=== PATIENT | female | born 1960 | race Caucasian/White ===

== ENCOUNTER 2023-05-04 06:58 | Day surgery (SDC) | payer OTHER, SELFPAY ==
--- NOTE | 2023-05-03 10:24 | PC.NURSE ---
Call placed to patient to attempt to go over her health history and medication list. There was no answer so a detailed message was left for patient with instruction for tomorrow. No caffeine, may have light breakfast, may take medications, must have a motor pool driver for after her procedure, must bring folder and eye drops and to call the number provided to get arrival time after 4 pm today.
--- NOTE | 2023-05-04 | OP_ITS ---
OPERATION DATE: 05/04/2023 SURGEON: Feliberto Gonzalez M.D. PREOPERATIVE DIAGNOSIS: Nuclear sclerotic cataract left eye. POSTOPERATIVE DIAGNOSIS: Nuclear sclerotic cataract left eye. PROCEDURE: Cataract extraction with intraocular lens placed for the left eye. ANESTHESIA: Topical. ESTIMATED BLOOD LOSS: Zero. COMPLICATIONS: None. PROCEDURE: In the preoperative holding area, topical proparacaine was placed under the surface of the eye and the patient was sat up in an upright position. The 6 o?clock limbus was then marked with a marking pen for future reference for the Toric lens. The patient was then brought to the operating room in supine position. After proper identification, the left eye was prepped and draped in a sterile ophthalmic fashion. A paracentesis was created at the 5 o'clock position. Approximately 1 mL of unpreserved Xylocaine was injected into the anterior chamber followed by Amvisc Plus. Using a 2.6 mm Keratome blade, a clear corneal incision was created at the 3 o'clock limbus. A cystotome was then used to begin a curvilinear capsulorrhexis that was continued for 360 degrees with the Utrata forceps. BSS on a 26 gauge cannula was injected beneath the anterior capsule in order to hydrodissect as well as hydrodelineate the lens. After ensuring mobility, phacoemulsification was performed in a [id number]-bkq-pcisfx-type fashion. After all nuclear material had been removed from the eye, IA was introduced and all residual cortical material was cleaned up. Additional Amvisc Plus was injected into the posterior bag and anterior chamber to inflate and pressurize the eye. Referencing the 6 o?clock limbal erick, a Cassatt manual marking system was used to find the 89 degree axis. This was marked on the surface of the eye. A lens model [id number], 12.5 diopters was then injected and dialed approximately 10 degrees shy of the 89 degree axis. IA was reintroduced into the anterior chamber and all residual Amvisc Plus was removed from the eye. Utilizing the tip of the IA, the lens was rotated the final 10 degrees to the 89 degree axis. BSS on a 30 gauge cannula was injected into the stroma of both the clear corneal incision as well as the paracentesis to hydrate the wounds. Additional BSS was injected into the anterior chamber to pressurize the eye at approximately 20 to 22 mmHg by finger tension. 0.1 cc of antibiotics was used to wash out the anterior chamber and maintain the pressure as above. Weck-Claire sponge was used to check the wounds to be watertight. One drop of Apraclonidine and one drop of prednisolone acetate were placed into the eye and a shield was placed over top. The patient was then sent to the postoperative area in satisfactory condition to follow up the following day for postoperative care. MELA
--- NOTE | 2023-05-04 06:58 | HP_ITS ---
PREOPERATIVE HISTORY AND PHYSICAL ? Date:? 05/03/2022 ? HISTORY:? The patient is a 62-year-old white female with complaints of declining vision out of her left eye.? This has been gradual in nature over the last 1-2 year, affecting her vision for both distance as well as near.? She describes it as constant and is worse when looking at objects such as the road signs at a distance, or the scrolling on the bottom of a television.? She also describes night time glare and halos around headlights.? Finally, she states having difficulty with up close objects for reading, such as newspaper or crossword puzzles. ? PAST OCULAR HISTORY:? Denies. ? PAST MEDICAL HISTORY:? 1.? Bipolar type 1 disorder. 2.? COPD. 3.? Hypothyroidism. 4.? GERD. ? SOCIAL HISTORY:? Denies tobacco, alcohol or recreational drug abuse. ? SYSTEMIC MEDICATIONS:? Include lorazepam, bupropion, Seroquel, omeprazole, potassium chloride. ? ALLERGIES:? Include amoxicillin, propoxyphene, acetaminophen, aripiprazole, cephalexin, codeine, erythromycin, meperidine, morphine, oxycodone/acetaminophen, penicillin, tramadol, valproic acid. ? REVIEW OF SYSTEMS:? No pertinent positives. ? PHYSICAL EXAM: GENERAL:? In general, she is awake, alert and oriented x3, well developed, well nourished, in no acute distress.? ? HEART:? Regular rate and rhythm. ? LUNGS:? Clear bilaterally. ? ABDOMEN:? Soft, non-tender, non-distended. ? EXTREMITIES:? No pitting edema. ? OPHTHALMIC EXAM:? Revealed a visual acuity of 20/60 + in the right eye and 20/60 - in the left.? Pupils motility, muscle balance, confrontational visual barros within normal limits bilaterally.? Pressures measured at 16 bilaterally.? Vision glared down to 20/200 bilaterally.? Slit lamp exam revealed blepharitis with a severe decrease in tear film bilaterally.? Conjunctiva, cornea, anterior chamber and iris were within normal limits bilaterally.? Lens status demonstrated a 2+ nuclear sclerosis with 1+ cortical changes and 1+ anterior subcapsular cataract bilaterally. ? FUNDUS EXAM:? Revealed good view with good dilation bilaterally.? Optic discs, macula, vessels, periphery and vitreous were within normal limits bilaterally. ? ASSESSMENT AND PLAN:? Visually significant cataract, left eye.? After risks, benefits, alternatives, as well as expectations were delivered to the patient, she elected to go forward with cataract removal.? She understands the risks include but not limited to infection, bleeding, loss of vision, loss of the eye itself.? Secondly, she understands postoperatively she is likely to require spectacle correction for best visual acuity.? Finally, a complete ophthalmic exam was performed, there is not determined to be any other source of visual decline other than that of the cataract. After understanding all the risks as well as expectations, she elects to move forward with the procedure as listed above and will be doing so in the near future. MELA
[2023-05-04] MEDS: BESIFLOXACIN HCL 100 DROP DROPS.SUSP OP ×4 (07:25→07:51)
[2023-05-04] MEDS: CYCLOPENTOLATE HCL 1% OP SOL 40 DROP/2 ML BOTTLE OP ×4 (07:25→07:51)
[2023-05-04] MEDS: PHENYLEPHRINE HCL 2.5% OP SOL 40 DROP/2 ML BOTTLE OP ×4 (07:25→07:51)
[2023-05-04] MEDS: TROPICAMIDE 1% OP SOL 300 DROP/15 ML BOTTLE OP ×4 (07:26→07:52)
[2023-05-04] MEDS: DIAZEPAM 5 MG TABLET 10 MG PO (07:33)
[2023-05-04 08:05] VITALS: BP 117/76; PULSE 80; RESP 16; TEMP 36.1; O2SAT 97
[2023-05-04] MEDS: BETADINE POVIDONE-IODINE 5% OP SOL 30 ML BOTTLE OP (08:40)
[2023-05-04 08:48] VITALS: BP 108/59; BP 109/70; PULSE 68; PULSE 69; RESP 16; RESP 18; O2SAT 97; O2SAT 99
[2023-05-04] MEDS: PREDNISOLONE ACETATE OP 1% SUSP 100 DROPS/5 ML 1 DROP OP (08:50)
[2023-05-04] MEDS: LIDOCAINE 2% JELLY 10 ML TOPICAL (08:53)
[2023-05-04] MEDS: PHENYLEPHRINE/KETOROLAC 1-0.3% ML VIAL 4 ML IRR (08:53)
[2023-05-04] MEDS: LIDOCAINE HCL 1% PF 20 MG/2 ML VIAL INJ (08:53)
[2023-05-04] MEDS: APRACLONIDINE HCL 100 DROP/5 ML BOTTLE OP (08:53)
[2023-05-04] MEDS: HYALURONATE SODIUM 16 MG/ML SYRINGE OP (08:53)
[2023-05-04] MEDS: PROPARACAINE HCL 0.5% 300 DROP/15 ML BOTTLE OP (08:58)
[2023-05-04] MEDS: TETRACAINE HCL 0.5% OP SOL 80 DROP/4 ML BOTTLE OP (08:59)
== END 2023-05-04 09:12 | disposition home or self-care (01) ==
LOC: SURGOUT 06:59
PROVIDERS: Visit Provider Ophthalmology
PROC: (CPT 66984; principal; 2023-05-04 08:10)
DX: H25.12 Age-related nuclear cataract, left eye (principal); K21.9 Gastro-esophageal reflux disease without esophagitis; E03.9 Hypothyroidism, unspecified; J44.9 Chronic obstructive pulmonary disease, unspecified; F31.9 Bipolar disorder, unspecified; Z79.899 Other long term (current) drug therapy
CPT/HCPCS: 66984

== ENCOUNTER 2023-05-31 10:08 | Outpatient (OUT) | payer OTHER, SELFPAY ==
--- OUTSIDE RECORDS SUMMARY | 2023-05-31 10:29 | XMS_ITS | CCD ---
Author Name Unknown Address [address] [place] [address] Organization [facility] Care Team Providers Care Disposal Man Name Role Phone MISC, DOCTOR Admitting Unavailable MISC, DOCTOR Attending Unavailable [facility] Primary Care Unava ilable [facility] Consulting Unava ilable Filiberto Grullon Unavailable Indira Pena Unavailable ALEXI DOMINGUEZ Attending Unavailable ABRAHAM ABREU Referring Unavailable Allergies Allergy Classification Reported Allergen(s) Allergy Type Date of Onset Reaction(s) Facility (3 sources) Acetaminophen Drug Allergy Unknown [facility] Repository (3 sources) Acetaminophen / oxyCODONE Drug Allergy Unknown [facility] Repository (3 sources) ARIPiprazole Drug Allergy Unknown [facility] Repository (3 sources) Cephalexin Drug Allergy Unknown [facility] Repository (1 source) Codeine Drug Allergy [facility] Repository (1 source) Erythromycin Drug Allergy [facility] Repository (1 source) Meperidine Drug Allergy [facility] Repository (1 source) Morphine Drug Allergy [facility] Repository (2 sources) Penicillin Drug Allergy rash [facility] Repository (1 source) traMADol Drug Allergy [facility] Repository (3 sources) Valproate Drug Allergy Unknown [facility] Repository (2 sources) Codeine Drug Allergy Unknown [facility] Other (2 sources) Erythromycin Drug Allergy Unknown [facility] Other (2 sources) Meperidine Drug Allergy Unknown [facility] Other (2 sources) Morphine Drug Allergy Unknown [facility] Other (1 source) Penicillin V Drug Allergy rash [facility] Other (2 sources) Penicillins (Antibiotic) Propensity to adverse reactions Unknown [facility] Other (2 sources) traMADol Drug Allergy Unknown [facility] Other Medications Current Medications Medication Drug Class(es) Dates Sig (Normalized) Sig (Original) Albuterol (3 sources) beta2-Adrenergic Agonist take 2 puff(s) by inhalation every four hours as needed ProAir HFA 108 (90 Base) MCG/ACT 2 puffs as needed Inhalation every 4 hrs Active take 3 mL by inhalat ion four times daily as needed Albuterol Sulfate (2.5 MG/ 3 ML) 3ml prn Inhalation 4 times a day Active amitriptyline hydrochloride 25 mg oral tablet (2 sources) Tricyclic Antidepressant take 1 tablet by mouth every twenty-four hours Amitriptyline HCl 25 MG 1 tablet at bedtime Orally Once a day Active azithromycin 250 mg oral tablet (1 source) Macrolide Antimicrobial Start: Azithromycin 250 MG 2 tablet on the first day, then 1 tablet daily for 4 days Orally Once a day for 5 day(s) May, Active 12 hr buPROPion hydrochloride 200 mg extended release oral tablet (2 sources) Aminoketone take 1 tablet by mouth every twelve hours Wellbutrin SR 200 MG 1 tablet Orally Twice a day Active ferrous sulfate 325 mg oral tablet (2 sources) take 1 tablet by mouth every twelve hours Iron 325 (65 Fe) MG 1 tablet Orally Twice a day Active FLUoxetine (2 sources) Serotonin Reuptake Inhibitor PROzac Active fluticasone (2 sources) Corticosteroid Flovent HFA Acti ve Hyoscyamine (2 sources) Hyoscyamine Acti ve levothyroxine sodium 0.05 mg oral tablet (2 sources) l-Thyroxine take 1 tablet by mouth every twenty-four hours Levothyroxine Sodium 50 MCG 1 tablet Orally Once a day for 90 days Active LORazepam 1 mg oral tablet (2 sources) Benzodiazepine take 1 tablet by mouth every twenty-four hours LORazepam 1 MG 1 tablet at bedtime as needed Orally Once a day Active potassium 99 mg extended release oral tablet (2 sources) take 1 tablet by mouth once daily Potassium 99 MG 1 tablet Orally Once a day Active predniSONE 20 mg oral tablet (3 sources) Start: 01-14-2 023 take 2 tablets by mouth every twelve hours prednisone 20 MG 2 tablets Orally BID for 5 days May, Active Start: 02-19-2022 take 1 tablet by glenda th every twelve hours predniSONE 20 MG 1 tablet Orally twice a day for 5 days Jan, Not-Taking ProAir HFA 108 (90 Base) MCG/ACT (1 source) take 2 puff(s) by inhalation every four hours as needed ProAir HFA 108 (90 Base) MCG/ACT 2 puffs as needed Inhalation every 4 hrs Active QUEtiapine 400 mg oral tablet (2 sources) Atypical Antipsychotic take 1 tablet by mouth every twenty-four hours SEROquel 400 MG 1 tablet at bedtime Orally Once a day Active Completed/Discontinued Medications Medication Drug Class(es) Dates Sig (Normalized) Sig (Original) Colestipol (2 sources) Bile Acid Sequestrant Colestipol HCl Not-Taking doxycycline monohydrate 100 mg oral capsule (4 sources) Tetracycline-class Drug Start: 02-19-2022 take 1 capsule by mouth every twenty-four hours Doxycycline Monohydrate 100 MG 1 capsule Orally Once a day for 10 day(s) Jan, Not-Taking Start: 02-19-2022 take 1 capsule by mo gah every twelve hours Doxycycline Monohydrate 100 MG 1 capsule Orally Twice a day for 7 day(s) Please fill the doxycycline BID x 7 days, but do not fill the doxycycline 100mg QD x10 days. Jan, Not-Taking Furosemide (2 sources) Loop Diuretic Lasix Not-Taking Lasix Active Problems Active Problems Problem Classification Problem Date Documented Da te Episodic/Chronic Chronic obstructive pulmonary disease and bronchiectasis (1 source) Bronchitis, not specified as acute or chronic Episodic Fever of unknown origin (1 source) Fever, unspecified; Translations: [FEVER UNSPECIFIED] Onset: 12-25-2019 Episodic Immunizations and screening for infectious disease (4 sources) Encounter for screening for other viral diseases; Translations: [ENC SCREENING FOR OTH VIRAL DZ] Onset: 12-17-2019 Episodic Other gastrointestinal disorders (2 sources) Irritable bowel syndrome; Translations: [Irritable bowel syndrome without diarrhea] Chronic Other gastrointestinal disorders (2 sources) Diarrhea; Translations: [Diarrhea, unspecified] Episodic Other lower respiratory disease (1 source) Cough; Translations: [COUGH] Onset: 12-25-2019 Episodic Other nutritional; endocrine; and metabolic disorders (2 sources) Body mass index 40+ - severely obese; Translations: [Body mass index (BMI) 40.0-44.9, adult] Chronic Other upper respiratory infections (1 source) Acute pansinusitis, unspecified Episodic Past or Other Problems Problem Classification Problem Date Documented Da te Episodic/Chronic Unclassified (2 sources) Cough R05.9 Results Test Name Value Interpretation Reference Range Facil ity COVID/FLU RT-PCRon 3 SARS-CoV-2 (COVID-19) RNA GERALD+probe Ql (Unsp spec) Negative [facility] Other COVID/FLU RT-PCR Negative [facility] Other SARS-CoV-2 (COVID-19) RNA NA A+probe Ql (Resp)on 02-19-2022 SARS-CoV-2 (COVID-19) RNA GERALD+probe Ql (Unsp spec) Negative [facility] Other COVID-19 PCRon 12-18-2019 SARS-CoV-2, GERALD Not Detected Normal Not Detected [facility] Comment on above: Result Comment: This test was developed and its performance characteristics determined by [employer]. This test has not been FDA cleared or approved. This test has been authorized by FDA under an Emergency Use Authorization (EUA). This test is only authorized for the duration of time the declaration that circumstances exist justifying the authorization of the emergency use of in vitro diagnostic tests for detection of SARS-CoV-2 virus and/or diagnosis of COVID-19 infection under section 564(b)(1) of the Act, 21 U.S.C. 360bbb-3(b)(1), unless the authorization is terminated or revoked sooner. When diagnostic testing is negative, the possibility of a false negative result should be considered in the context of a patient's recent exposures and the presence of clinical signs and symptoms consistent with COVID-19. An individual without symptoms of COVID-19 and who is not shedding SARS-CoV-2 virus would expect to have a negative (not detected) result in this assay. Performed By: #### C VDPCR #### [facility] [address] [place] [id number] [address]yma Yap Vital Signs Date Time Vital Sign Value Performing Clinician Facility 05-14-2022 12:35-0500 Body height 172.72 cm Indira Jean Other [facility] Other 05-14-2022 12:35-0500 Body mass index (BMI) [Ratio] 32.69 kg/m2 Indira Pena Other [facility] Other 05-14-2022 12:35-0500 Body temperature 98.1 [degF] Indira Pena Other [facility] Other 05-14-2022 12:35-0500 Body weight 97.52 kg Indira Jean Other [facility] Other 05-14-2022 12:35-0500 Diastolic blood pressure 76 mm[Hg] Indira Pena Other [facility] Other 05-14-2022 12:35-0500 SaO2% (BldA) [Mass fraction] 94 % Indira Pena Other [facility] Other 05-14-2022 12:35-0500 Systolic blood pressure 107 mm[Hg] Indira Pena Other [facility] Other 02-19-2022 14:55-0400 Body height 172.72 cm Filiberto Coreaaker Other [facility] Other 02-19-2022 14:55-0400 Body mass index (BMI) [Ratio] 33.45 kg/m2 Filiberto Yadi Other [facility] Other 02-19-2022 14:55-0400 Body temperature 98 [degF] Filiberto Grullon Other [facility] Other 02-19-2022 14:55-0400 Body weight 99.79 kg Filiberto Grullon Other [facility] Other 02-19-2022 14:55-0400 Diastolic blood pressure 79 mm[Hg] Filiberto Grullon Other [facility] Other 02-19-2022 14:55-0400 SaO2% (BldA) [Mass fraction] 97 % Filiberto Grullon Other [facility] Other 02-19-2022 14:55-0400 Systolic blood pressure 114 mm[Hg] Filiberto Grullon Other [facility] Other Encounters Encounter Date Encounter Type Care Provider Facility Start: 04-12-2023 End: 04-12-2023 ambulatory ALEXI DOMINGUEZ Not Available Start: 05-14-2022 End: 05-14-2022 ambulatory Indira Pena Other [facility] Other Start: 05-14-2022 Office outpatient vi sit 25 minutes Indira Pena [facility] Start: 02-19-2022 End: 02-19-2022 ambulatory Filiberto Grullon Other [facility] Other Start: 02-19-2022 Office outpatient vi sit 15 minutes Filiberto Grullon [facility] Start: 12-17-2019 End: 12-18-2019 Patient encounter procedure DOCTOR MIS Facility: Payers Date Payer Category Payer Unknown [id number] 1960 Unknown [id number] 1960 Unknown [id number] 1957 Unknown [id number] Social History Date Type Detail Facility Unknown if ever smoked [facility] Other Sex Assigned At Sex Assigned At Bir th [facility] Other Evaluation note 05-14-2022 Note Date & Type Note Facility 05-14-2022 Evaluation note Encounter Date Diagnosis Assessment Notes May, Cough (ICD-10 - R05.9) May, Bronchitis (ICD-10 - J40) Advised patient that COVID/Influenza A/B PCR test was negative. Discussed diagnosis with patient in detail. Advised patient that cough may linger for 3 weeks. Will treat today with antibiotic. Reviewed allergies and recent antibiotic use. Advised to take medications as prescribed, reviewed side effects of steroid, take with food and plenty of water, finish entire course. Encouraged supportive care as directed, push fluids and rest, may use Tylenol as needed for fever/discomfor t, cool mist humidifier. Patient to follow up with PCP in 2-3 days if symptoms do not improve. Immediate eval if SOB, difficulty breathing, chest pain, dizziness, or other concerning symptoms. Patient verbalizes understanding and is agreeable to treatment plan [facility] Other Evaluation note 02-19-2022 Note Date & Type Note Facility 02-19-2022 Evaluation note Encounter Date Diagnosis Assessment Notes Jan, Cough (ICD-10 - R05.9) Jan, Acute non-recurrent pansinusitis (ICD-10 - J01.40) We will call you when the covid PCR results return. Sinus infections can be triggeredby a secondary infection; usually a viral URI or even seasonal allergies. Take medications as directed. Use saline nasal spray prior to presciption nasal spray. Complete all doses of medication even if you start to feel better. Symptoms should improve during treatment period. Follow up with primary care provider if no improvement of symptoms occur by end of treatment. Covid PCR test is negative. Sign and symptoms consistent with pansinusitis. will treat with doxy and prednisone. Pt given return precautions. She understands and agrees with the plan. [employer] Other History general Narrative - Reported Note Date & Type Note Facility History general Narrative - Reported Type Medical History bipolar Medical History hypothyroidism Medical History fibromyalgia Medical History neuropathy Surgical History HERNIA REPAIR Surgical History CHOLECYSTECTOMY Surgical History HYSTERECTOMY Surgical History APPENDECTOMY Surgical History GASTRIC BYPASS Hospitalization History see surgical hx [facility] [employer] Other History general Narrative - Reported Note Date & Type Note Facility History general Narrative - Reported Type Medical History bipolar Medical History hypothyroidism Medical History fibromyalgia Medical History neuropathy Medical History Arthritis Medical History carpal tunnel Surgical History HERNIA REPAIR Surgical History CHOLECYSTECTOMY Surgical History HYSTERECTOMY Surgical History APPENDECTOMY Surgical History GASTRIC BYPASS Hospitalization History see surgical hx [facility] [employer] Other Summary Purpose Family History No Family History Records FoundNo Family History Records Found Advance Directives No Advanced Directives Records FoundNo Advanced Directives Records Found Additional Source Comments INFORMATION SOURCE (unrecogn ized section and content) DATE CREATED AUTHOR 12/26/2019 [facility] DATE CREATED AUTHOR AUTHOR'S ORGANIZ ATION 04/14/2023 [facility] EPIC REASON FOR VISIT (unrecogniz ed section and content) FULLY VACCINATED, COUGH, SIN US CONGESTIONCOUGH, CONGESTION, SHORT OF BREATH FOR RECORDS PERTAINING TO PATIENTS WHO ARE OR HAVE BEEN ENROLLED IN A CHEMICAL DEPENDENCY/SUBSTANCEABUSE PROGRAM, SOME INFORMATION MAY BE OMITTED. This clinical summary was aggregated from multiple sources. Caution should be exercised in using it in the provision of clinical care. This summary normalizes information from multiple sources, and as a consequence, information in this document may materially change the coding, format and clinical context of patient data. In addition, data may be omitted in some cases. CLINICAL DECISIONS SHOULD BE BASED ON THE PRIMARY CLINICAL RECORDS. [employer] provides no warranty or guarantee of the accuracy or completeness of information in this document.
== END 2023-05-31 10:09 | disposition home or self-care (01) ==
LOC: PST 10:08
PROVIDERS: Visit Provider Ophthalmology
DX: Z01.818 Encounter for other preprocedural examination (principal); H25.811 Combined forms of age-related cataract, right eye

== ENCOUNTER 2023-06-01 06:28 | Day surgery (SDC) | payer OTHER, SELFPAY ==
--- NOTE | 2023-06-01 | OP_ITS ---
OPERATION DATE: 06/01/2023 SURGEON: Feliberto Gonzalez M.D. PREOPERATIVE DIAGNOSIS: Nuclear sclerotic cataract right eye. POSTOPERATIVE DIAGNOSIS: Nuclear sclerotic cataract right eye. PROCEDURE NAME: Cataract extraction with intraocular lens placement for the right eye. ANESTHESIA: Topical. ESTIMATED BLOOD LOSS: Zero. COMPLICATIONS: None. PROCEDURE: In the preoperative holding area, topical proparacaine was placed into the eye and the patient was sat up in an upright position. This allowed for a erick of the 6 o?clock limbus with a marking pen. The patient was then brought to the operating room in supine position. After proper identification, the right eye was prepped and draped in a sterile ophthalmic fashion. A paracentesis was created at the 11 o'clock position. Approximately 1 cc of unpreserved Xylocaine was injected into the anterior chamber followed by Amvisc Plus. Using a 2.6 mm Keratome blade, a clear corneal incision was created at the 9 o'clock limbus. A cystotome was then used to begin a curvilinear capsulorrhexis that was continued for 360 degrees with the Utrata forceps. BSS on a 26 gauge cannula was injected beneath the anterior capsule to hydrodissect as well as hydrodelineate the lens. After ensuring mobility, phacoemulsification was performed in a [id number]-type fashion. After all nuclear material had been removed from the eye, IA was introduced and all residual cortical material was cleaned up. Additional Amvisc Plus was injected into the posterior bag to pressurize and stabilize the anterior chamber. Using a Isaacs Toric marking system, the 130 degree axis was found and marked, referencing the 6 o?clock limbal erick that ass provided preoperatively. A lens model [id number], 12.5 diopters was then inserted through the temporal wound, into the posterior bag and allowed to expand. This was then dialed approximately 10 degrees shy of the 130 degree axis. IA was reintroduced into the anterior chamber and all residual Amvisc Plus was removed from the eye. Utilizing the tip of the IA, the lens was rotated the final 10 degrees to the 130 degree axis. BSS on a 30 gauge cannula was injected into the stroma of both the clear corneal incision as well as the paracentesis to hydrate the wounds. Additional BSS was injected into the anterior chamber to pressurize the eye at approximately 20 to 22 mmHg by finger tension. Weck-Claire sponges were used to check the wounds to be watertight. One drop of Apraclonidine and one drop of prednisolone acetate were placed into the eye and a shield was placed over top. The patient was then sent to the postoperative area in satisfactory condition to follow up the following day for postoperative care. MELA
--- NOTE | 2023-06-01 | HP_ITS ---
PREOPERATIVE HISTORY AND PHYSICAL Date: 06/01/2023 HISTORY: The patient is a 62-year-old white female who describes a steady decline in her vision out of her right eye. She states having difficulty with distance vision, seeing road signs as well as the television scrolling. She also states having difficulty at night time while driving, with headlights creating glare and halos. PAST OCULAR HISTORY / PAST MEDICAL HISTORY / SOCIAL HISTORY / MEDICATIONS / ALLERGIES TO MEDICATIONS / REVIEW OF SYSTEMS / PHYSICAL EXAM: Unchanged from previously dictated. ASSESSMENT AND PLAN: Visually significant cataract, right eye. After risks, benefits, alternatives, as well as expectations were delivered to the patient, she elected to go forward with cataract removal. She understands the risks include but not limited to infection, bleeding, loss of vision, loss of the eye itself. Secondly, she understands postoperatively she is likely to require spectacle correction for best visual acuity. Finally, a complete ophthalmic exam was performed, there is not determined to be any other source of visual decline other than that of the cataract. After understanding all risks as well as expectations, she elected to go forward with the procedure as listed above and will be doing so in the near future. MELA
--- OUTSIDE RECORDS SUMMARY | 2023-06-01 06:30 | XMS_ITS | CCD ---
Author Name Unknown Address [address] [place] [address] Organization [facility] Care Team Providers Care An/Syq 13 Nav/C2 Operator Name Role Phone MISC, DOCTOR Admitting Unavailable MISC, DOCTOR Attending Unavailable [facility] Primary Care Unava ilable [facility] Consulting Unava ilable Filiberto Grullon Unavailable Indira Pena Unavailable ALEXI DOMINGUEZ Attending Unavailable ABRAHAM ABREU Referring Unavailable Allergies Allergy Classification Reported Allergen(s) Allergy Type Date of Onset Reaction(s) Facility (3 sources) Acetaminophen Drug Allergy Unknown [facility] Repository (3 sources) Acetaminophen / oxyCODONE Drug Allergy Unknown [facility] Repository (3 sources) ARIPiprazole Drug Allergy Unknown [facility] Repository (3 sources) Cephalexin Drug Allergy Unknown [facility] Repository (1 source) Codeine Drug Allergy [facility] Repository (1 source) Erythromycin Drug Allergy [facility] Repository (1 source) Meperidine Drug Allergy [facility] Repository (1 source) Morphine Drug Allergy [facility] Repository (2 sources) Penicillin Drug Allergy rash [facility] Repository (1 source) traMADol Drug Allergy [facility] Repository (3 sources) Valproate Drug Allergy Unknown [facility] Repository (2 sources) Codeine Drug Allergy Unknown [facility] Other (2 sources) Erythromycin Drug Allergy Unknown [facility] Other (2 sources) Meperidine Drug Allergy Unknown [facility] Other (2 sources) Morphine Drug Allergy Unknown [facility] Other (1 source) Penicillin V Drug Allergy rash [facility] Other (2 sources) Penicillins (Antibiotic) Propensity to adverse reactions Unknown [facility] Other (2 sources) traMADol Drug Allergy Unknown [facility] Other Medications Current Medications Medication Drug Class(es) [...] Start: 02-19-2022 take 1 capsule by mo ohh every twelve hours Doxycycline Monohydrate 100 MG [...] (COVID-19) RNA GERALD+probe Ql (Unsp spec) Negative [facility] Other COVID/FLU RT-PCR Negative [facility] Other SARS-CoV-2 (COVID-19) RNA NA A+probe Ql (Resp)on 02-19-2022 SARS-CoV-2 (COVID-19) RNA GERALD+probe Ql (Unsp spec) Negative [facility] Other COVID-19 PCRon 12-18-2019 SARS-CoV-2, GERALD Not Detected Normal Not Detected [facility] Comment on above: Result Comment: This test was developed and its performance characteristics determined by [facility]. This test has not been FDA cleared [...] assay. Performed By: #### C VDPCR #### [facility] [address] [place] [id number] [address] Vital Signs Date Time Vital Sign Value Performing Clinician Facility 05-14-2022 12:35-0500 Body height 172.72 cm Indira Jean Other [facility] Other 05-14-2022 12:35-0500 Body mass index (BMI) [Ratio] 32.69 kg/m2 Indira Pena Other [facility] Other 05-14-2022 12:35-0500 Body temperature 98.1 [degF] Indira Pena Other [facility] Other 05-14-2022 12:35-0500 Body weight 97.52 kg Indira Jean Other [facility] Other 05-14-2022 12:35-0500 Diastolic blood pressure 76 mm[Hg] Indira Pena Other [facility] Other 05-14-2022 12:35-0500 SaO2% (BldA) [Mass fraction] 94 % Indira Pena Other [facility] Other 05-14-2022 12:35-0500 Systolic blood pressure 107 mm[Hg] Indira Pena Other [facility] Other 02-19-2022 14:55-0400 Body height 172.72 cm Filiberto Coreaaker Other [facility] Other 02-19-2022 14:55-0400 Body mass index (BMI) [Ratio] 33.45 kg/m2 Filiberto Yadi Other [facility] Other 02-19-2022 14:55-0400 Body temperature 98 [degF] Filiberto Grullon Other [facility] Other 02-19-2022 14:55-0400 Body weight 99.79 kg Filiberto Grullon Other [facility] Other 02-19-2022 14:55-0400 Diastolic blood pressure 79 mm[Hg] Filiberto Grullon Other [facility] Other 02-19-2022 14:55-0400 SaO2% (BldA) [Mass fraction] 97 % Filiberto Grullon Other [facility] Other 02-19-2022 14:55-0400 Systolic blood pressure 114 mm[Hg] Filiberto Grullon Other [facility] Other Encounters Encounter Date Encounter Type Care Provider Facility Start: 04-12-2023 End: 04-12-2023 ambulatory ALEXI DOMINGUEZ Not Available Start: 05-14-2022 End: 05-14-2022 ambulatory Indira Pena Other [facility] Other Start: 05-14-2022 Office outpatient vi sit 25 minutes Indira Pena [facility] Start: 02-19-2022 End: 02-19-2022 ambulatory Filiberto Grullon Other [facility] Other Start: 02-19-2022 Office outpatient vi sit 15 minutes Filiberto Grullon [facility] Start: 12-17-2019 End: 12-18-2019 Patient encounter procedure DOCTOR MIS Facility: Payers Date Payer Category Payer Unknown [id number] 1960 Unknown [id number] 1960 Unknown [id number] 1959 Unknown [id number] Social History Date Type Detail Facility Unknown if ever smoked [facility] Other Sex Assigned At Sex Assigned At Bir th [facility] Other Evaluation note 05-14-2022 Note Date & [...] understanding and is agreeable to treatment plan [facility] Other Evaluation note 02-19-2022 Note Date & [...] She understands and agrees with the plan. [facility] Other History general Narrative - Reported Note Date & Type Note Facility History general Narrative - Reported Type Medical History bipolar Medical History hypothyroidism Medical History fibromyalgia Medical History neuropathy Surgical History HERNIA REPAIR Surgical History CHOLECYSTECTOMY Surgical History HYSTERECTOMY Surgical History APPENDECTOMY Surgical History GASTRIC BYPASS Hospitalization History see surgical hx [facility] [employer] Other History general Narrative - Reported Note Date & Type Note Facility History general Narrative - Reported Type Medical History bipolar Medical History hypothyroidism Medical History fibromyalgia Medical History neuropathy Medical History Arthritis Medical History [place] Surgical History HERNIA REPAIR Surgical History CHOLECYSTECTOMY Surgical History HYSTERECTOMY Surgical History APPENDECTOMY Surgical History GASTRIC BYPASS Hospitalization History see surgical hx [facility] [employer] Other Summary Purpose Family History No Family History Records FoundNo Family History Records Found Advance Directives No Advanced Directives Records FoundNo Advanced Directives Records Found Additional Source Comments INFORMATION SOURCE (unrecogn ized section and content) DATE CREATED AUTHOR 12/26/2019 [facility] DATE CREATED AUTHOR AUTHOR'S ORGANIZ ATION 04/14/2023 [facility] EPIC REASON FOR VISIT (unrecogniz ed [...] BE BASED ON THE PRIMARY CLINICAL RECORDS. [employer] provides no warranty or guarantee of the accuracy or completeness of information in this document.
[2023-06-01 06:45] VITALS: BP 119/79; PULSE 78; RESP 16; TEMP 35.8; O2SAT 99
[2023-06-01] MEDS: TROPICAMIDE 1% OP SOL 300 DROP/15 ML BOTTLE OP ×4 (06:50→07:28)
[2023-06-01] MEDS: PHENYLEPHRINE HCL 2.5% OP SOL 40 DROP/2 ML BOTTLE OP ×4 (06:51→07:28)
[2023-06-01] MEDS: BESIFLOXACIN HCL 100 DROP DROPS.SUSP OP ×4 (06:51→07:28)
[2023-06-01] MEDS: DIAZEPAM 5 MG TABLET PO (07:57)
[2023-06-01 08:13] VITALS: BP 115/67; PULSE 71; RESP 18; O2SAT 100
[2023-06-01] MEDS: APRACLONIDINE HCL 100 DROP/5 ML BOTTLE OP (08:16)
[2023-06-01] MEDS: LIDOCAINE HCL 1% PF 20 MG/2 ML VIAL INJ (08:17)
[2023-06-01] MEDS: LIDOCAINE 2% JELLY 10 ML TOPICAL (08:17)
[2023-06-01] MEDS: HYALURONATE SODIUM 16 MG/ML SYRINGE OP (08:17)
[2023-06-01] MEDS: PREDNISOLONE ACETATE OP 1% SUSP 100 DROPS/5 ML 1 DROP OP (08:18)
[2023-06-01] MEDS: PROPARACAINE HCL 0.5% 300 DROP/15 ML BOTTLE OP (08:18)
[2023-06-01] MEDS: PHENYLEPHRINE/KETOROLAC 1-0.3% ML VIAL 4 ML IRR (08:18)
[2023-06-01] MEDS: BETADINE POVIDONE-IODINE 5% OP SOL 30 ML BOTTLE OP (08:18)
[2023-06-01] MEDS: TETRACAINE HCL 0.5% OP SOL 80 DROP/4 ML BOTTLE OP (08:19)
[2023-06-01 08:24] VITALS: BP 113/73; PULSE 70; RESP 18; O2SAT 100
== END 2023-06-01 08:38 | disposition home or self-care (01) ==
LOC: SURGOUT 06:28
PROVIDERS: Visit Provider Ophthalmology
PROC: (CPT 66984; principal; 2023-06-01 07:50)
DX: H25.11 Age-related nuclear cataract, right eye (principal)
CPT/HCPCS: 66984